=== PATIENT | female | born 1965 | race Caucasian/White ===

== ENCOUNTER 2016-08-29 11:50 | Day surgery (SDC) | payer OTHER ==
[~2016-08-29] VITALS: Ht 170.2 cm; Wt 83.0 kg
[~2016-08-29 11:50] MED LIST: 0.9% Sodium Chloride 1,000 ML IV PRN; FLUO20CA25 PO; LEVO25TA2 PO; OMEP20CA11 PO; Sodium Chloride LOK Flush 10 mL Syringe IV PRN; fentaNYL-PF 50 mCg/mL 2 mL Inj IVPUSH PRN
[2016-08-29 12:32] VITALS: BP 127/82; PULSE 89; RESP 16; O2SAT 93
--- NOTE | 2016-08-29 13:32 | PCM.ENDEGD ---
EGD Date of Service: Aug 29, 2016 Physician Chao Bowden MD Indication for Procedure Reflux Post Procedure Dx & Findings: Esophageal healing erosion Procedure Esophagogastroduodenoscopy PROCEDURE IN DETAIL: The patient was placed in left lateral decubitus position. Bite block was placed. Scope lubricated, placed in posterior pharynx, passed through the cricopharyngeus and esophagus, slowly advanced the entire length of the gastric pouch, pylorus was identified, scope passed through the pylorus and descending portion of duodenum, withdrawn in the antrum, retroflexed upon itself for view of fundus and cardia. Scope was then withdrawn through the oropharynx. The esophagus was normal until we got to the Z line which was at 40 cm. At the Z line, there was surrounding irritation consistent with healing erosion or superficial ulcer which was about 5-6 mm. Biopsy obtained. Scope further advanced to the stomach which showed normal cardia fundus body and antrum. Retroflexion was done. Stomach was easily inflatable and deflated using air. Duodenum showed normal villous structure with normal appearing folds. Impression Healing esophageal erosion or superficial ulcer Recommendation Continue acid suppression. Presedation Assessment Risks and Benefits Informed consent was obtained from the patient after all risks and benefits including but not limited to drug reaction, infection, pain, bleeding, perforation, as well as alternatives were discussed. Patient monitoring Continuous pulse oximetry, cardiac monitoring, blood pressure monitoring, IV access, and oxygen at 2L per nasal cannula. Periprocedural Fentanyl: Fentanyl 150mcg Incrementally Midazolam: Midazolam 8mg Incrementally Complications There were no periprocedural complications identified. Post Procedure Plan Post Procedure Recommendations 1. Restrict activities today. 2. Resume normal activities in the morning. 3. Resume medications. 4. GERD behavioral modification: - Avoid fatty, acidic, spicy, large meals - Do not lie down after meals - Do not eat or drink anything for at least 2 1/2 hours before going to bed at night - Discontinue tobacco and alcohol - Decrease or avoid caffeine - Avoid chocolate and mints - Decrease weight - Avoid aspirin and non steroidal anti-inflammatory agents (NSAID) such as Aleve, Advil, Mobic, Naproxen, Ibuprofen, etc 5. Add proton pump inhibitor. Take 30 minutes before 1st meal of the day. 6. Patient informed of normal post procedure side effects as bloating, drowsiness, blood streaking in the stool 7. If gastric biopsy reveal H.pylori, continue with appropriate treatment 8. If small bowel biopsy reveals celiac, continue with appropriate treatment 9. Please don't hesitate to call me with any questions Chao Bowden MD Aug 29, 2016 13:32
--- NOTE | 2016-08-29 13:54 | PCM.ENDCOL ---
Colonoscopy Date of Service: Aug 29, 2016 Physician Chao Bowden MD Indication for Procedure Worsening constipation Post Procedure Dx & Findings: Polyp diverticuli Procedure Colonoscopy Prep adequate Withdrawal 12 minutes PROCEDURE IN DETAIL: After unremarkable rectal examination of the Olympus video colonoscope was inserted into patient's anal canal disorder advanced to cecum. Landmarks are identified including the ileocecal valve and the appendiceal orifice. Scope was withdrawn systematically. The mucosa of the cecum, ascending, transverse, descending, sigmoid, rectal mucosa lined with whitish, pink, smooth, glistening, normal-appearing mucosa, normal fine branching, underlying vascularity, normal haustra. The patient tolerated procedure and was transported to observation area. In the sigmoid colon there are a few small diverticuli. Also in the rectum, there was a 1 mm polyp which was resected completely using cold forceps. In the rectum retroflexion was done which showed hemorrhoids and a canal was inspected carefully and the way out and hemorrhoids noted. Impression Polyp status post complete removal Hemorrhoids Diverticuli Recommendation Repeat colonoscopy 5 years. Presedation Assessment Risks and Benefits Informed consent was obtained from the patient after all risks and benefits including but not limited to drug reaction, infection, pain, bleeding, perforation, as well as alternatives were discussed. Patient monitoring Continuous pulse oximetry, cardiac monitoring, blood pressure monitoring, IV access, and oxygen at 2L per nasal cannula. Periprocedural Fentanyl: Fentanyl 25mcg Midazolam: Midazolam 1mg Incrementally Complications There were no periprocedural complications identified. Post Procedure Plan Post Procedure Recommendations 1. Restrict activities today. 2. Resume normal activities in the morning. 3. Resume medications. 4. Patient informed of normal post procedure side effects as bloating, drowsiness, blood streaking in the stool. 5. average risk CRCS. If colon polyps come back as: -Hyperplastic- can repeat colonoscopy in 10 years -Tubular adenoma- repeat colonoscopy in 5 years -Tubulovillous/villous adenoma- repeat colonoscopy in 3 years -If any dysplasia- return to clinic as soon as possible 6. Please don't hesitate to call me with any questions. Chao Bowden MD Aug 29, 2016 13:54
[2016-08-29 13:57] VITALS: BP 114/77; PULSE 85; RESP 14; O2SAT 94
[2016-08-29 14:12] VITALS: BP 105/64; PULSE 77; RESP 12; O2SAT 95
[2016-08-29 14:15] VITALS: BP 111/74; PULSE 80; RESP 14; O2SAT 98
--- NOTE | 2016-08-31 11:21 | PATH ---
SURGICAL PATHOLOGY Attending Physician:Chao Bowden M.D. CASE STATUS: Signed Out PATIENT NAME: SHANNA AL PID: [id number] : 1965 DATE COLLECTED:08/29/2016 00:00 SPECIMEN: 1: Esophagus, Biopsy 2: Colon, Biopsy CLINICAL HISTORY: 1. ESOPHAGEAL BIOPSY 2. RECTO-SIGMOID POLYP FINAL DIAGNOSIS: 1. Esophageal Biopsy: Squamous mucosa and gastric cardia-type mucosa with chronic inflammation and reactive epithelial changes. Negative for specialized metaplasia and Márquez's type esophagus. Negative for dysplasia and malignancy. Rare eosinophils present within the squamous epithelium consistent with changes secondary to chronic reflux. 2. Rectosigmoid Polyp: Tubular adenoma. ICD10 D12.7 GROSS DESCRIPTION: The specimen is received in two formalin filled containers labeled with the patient's name. 1). The specimen is sublabeled "esophageal" and consists of a 0.2 x 0.2 x 0.2 CM portion of tissue which is entirely submitted in cassette 1A. 2). The specimen is sublabeled "recto sigmoid polyp" and consists of a 0.2 x 0.2 x 0.2 CM portion of tissue which is entirely submitted in cassette 2A. 08/30/2016 [facility] ICD-9 CODES: CPT CODES: 1: 23865 2: 62982 Electronically Signed Out Yon Sanchez MD [facility] [address], [place] [address] Technical component performed at [facility], [facility] [address], [address]
== END 2016-08-29 23:59 | disposition home or self-care (01) ==
LOC: END 11:50
PROVIDERS: ATTEND Internal Medicine
DX: D12.7 Benign neoplasm of rectosigmoid junction (principal); K57.30 Diverticulosis of large intestine without perforation or abscess without bleeding; K64.9 Unspecified hemorrhoids; K21.9 Gastro-esophageal reflux disease without esophagitis; K22.10 Ulcer of esophagus without bleeding; K59.01 Slow transit constipation
CPT/HCPCS: 43239; 45380; 99153; G0500; J2250; J7030